=== PATIENT | female | born 1955 | race Two or more races ===

== ENCOUNTER 2018-01-29 19:02 | Emergency (ER) | payer OTHER ==
--- NOTE | 2018-01-29 21:09 | ED Physician Documentation ---
PD HPI LOWER EXT INJURY - Stated complaint Stated Complaint: LT LEG LAC - Chief complaint Chief Complaint: Laceration - History obtained from History obtained from: Patient - History of Present Illness PD HPI LOW EXT INJURY LOCATION: Left Type of injury: Blunt / blow (a wooden tamar struck her left leg, leading to laceration that does not want to stop bleeding, just oozing.) Improved by: Rest Worsened by: Moving, Palpating Associated symptoms: No: Weakness, Numbness Contributing factors: Anticoagulated. No: Prior ortho surgery Similar symptoms before: Has not had sx before Recently seen: Not recently seen Review of Systems Constitutional: denies: Fever, Chills Nose: denies: Rhinorrhea / runny nose, Congestion Cardiac: denies: Chest pain / pressure Respiratory: denies: Dyspnea GI: denies: Nausea, Vomiting, Diarrhea : denies: Dysuria, Frequency Neurologic: denies: Focal weakness, Numbness PD PAST MEDICAL HISTORY - Past Medical History Past Medical History: Yes Cardiovascular: Hypertension Neuro: TIA Endocrine/Autoimmune: Type 1 diabetes - Past Surgical History Past Surgical History: No - Present Medications Home Medications: Ambulatory Orders Medication Instructions Recorded Confirmed Aspirin/Dipyridamole [Aggrenox] 1 tab PO BID 01/29/18 01/29/18 Bupropion HCl [Bupropion Xl] 2 tab PO DAILY 01/29/18 01/29/18 Insulin Lispro [Humalog] 01/29/18 Losartan Potassium 1 tab PO DAILY 01/29/18 01/29/18 Pravastatin [Pravachol] 1 tab PO DAILY 01/29/18 01/29/18 - Allergies Allergies/Adverse Reactions: Allergies Allergy/AdvReac Type Severity Reaction Status Date / Time clindamycin Allergy Rash Verified 01/29/18 19:20 - Living Situation Living Arrangement: reports: At home - Social History Does the pt smoke?: No Smoking Status: Never smoker PD ED PE NORMAL - Vitals Vital signs reviewed: Yes - General General: Alert and oriented X 3, No acute distress, Well developed/nourished - Neck Neck: Supple, no meningeal sign, No adenopathy - Cardiac Cardiac: RRR, No murmur, No rub - Respiratory Respiratory: Clear bilaterally - Derm Derm: Normal color, Warm and dry - Extremities Extremities: Other (left lower leg anteriorly with laceration 2 cm to fatty tissue. No FB and no deep structures seen. ) Results - Vitals Vitals: Oxygen O2 Source Room air Procedures - Laceration (location) left lower leg Length in cm: 2 Wound type: Curved Neurovascular status: Sensory intact, Motor intact, Vascular intact Tendon involvement: No: Tendon Injury Anesthesia: Lidocaine 2% Skin layer closure: Nylon, Running, Size #-0 - enter number (4), Sutures - enter # Other: Patient tolerated well, No complications PD MEDICAL DECISION MAKING - Sepsis Event Vital Signs: Oxygen O2 Source Room air Departure - Departure Disposition: 01 Home, Self Care Clinical Impression: Laceration of left lower leg Qualifiers: Encounter type: initial encounter Qualified Code(s): S81.812A - Laceration without foreign body, left lower leg, initial encounter Condition: Stable Record reviewed to determine appropriate education?: Yes Instructions: ED Laceration All Comments: Tylenol or ibuprofen if needed for pains. It is okay to wash and shower. Clean off the wound twice a day with soap and water, or peroxide and water. Apply some antibiotic ointment to it to keep it moist. Also to watch for signs of infection such as purulence, redness or increasing pain. Return to your primary care or the ER at the specified time for suture removal. Suture removal in 12- 14 days. Discharge Date/Time: 01/29/18 22:19
[2018-01-29 22:19] VITALS: BP 132/73
== END 2018-01-29 22:19 | disposition home or self-care (01) ==
LOC: ED 19:02
DX: S81.812A Laceration without foreign body, left lower leg, initial encounter (principal); W22.8XXA Striking against or struck by other objects, initial encounter; I10 Essential (primary) hypertension; Z86.73 Personal history of transient ischemic attack (TIA), and cerebral infarction without residual deficits; Z79.82 Long term (current) use of aspirin; Z79.4 Long term (current) use of insulin
CPT/HCPCS: 12001; 99282; 99283

== ENCOUNTER 2018-02-11 09:19 | Emergency (ER) | payer OTHER ==
[2018-02-11 09:52] VITALS: BP 162/84
--- NOTE | 2018-02-11 10:04 | ED Physician Documentation ---
PD HPI WOUND RECHECK - Stated complaint Stated Complaint: SUTURE REMOVAL - Chief complaint Chief Complaint: Laceration - Histroy obtained from History obtained from: Patient - History of Present Illness Location: Left Lower Extremity Timing - onset: How many days ago (13) Associated symptoms: Redness Similar symptoms before: Diagnosis (laceration) Recently seen: Emergency Dept - Additional information Additional information: 62-year-old female had a left calf laceration and was seen in the emergency department here 13 days ago with sutures placed. She is in here now for suture removal. She has no specific complaints she has been keeping the wound closed. Review of Systems Constitutional: denies: Fever Respiratory: denies: Cough GI: denies: Vomiting : denies: Dysuria Skin: reports: Laceration (s). denies: Rash Musculoskeletal: denies: Neck pain, Back pain, Extremity pain Neurologic: denies: Generalized weakness, Focal weakness, Numbness PD PAST MEDICAL HISTORY - Past Medical History Cardiovascular: Hypertension Neuro: TIA Endocrine/Autoimmune: Type 1 diabetes - Past Surgical History Past Surgical History: No - Present Medications Home Medications: Ambulatory Orders Medication Instructions Recorded Confirmed Aspirin/Dipyridamole [Aggrenox] 1 tab PO BID 01/29/18 01/29/18 Bupropion HCl [Bupropion Xl] 2 tab PO DAILY 01/29/18 01/29/18 Insulin Lispro [Humalog] 01/29/18 Losartan Potassium 1 tab PO DAILY 01/29/18 01/29/18 Pravastatin [Pravachol] 1 tab PO DAILY 01/29/18 01/29/18 - Allergies Allergies/Adverse Reactions: Allergies Allergy/AdvReac Type Severity Reaction Status Date / Time clindamycin Allergy Rash Verified 01/29/18 19:20 - Social History Does the pt smoke?: No Smoking Status: Never smoker PD ED PE NORMAL - Vitals Vital signs reviewed: Yes (hypertensive) - General General: Alert and oriented X 3, No acute distress, Well developed/nourished - HEENT HEENT: Atraumatic, PERRL - Respiratory Respiratory: No respiratory distress - Derm Derm: Normal color, Warm and dry, No rash - Extremities Extremities: No deformity, No edema, Other (There is a 5cm laceration to the left anterior calf that appears to be healing well without drainage or sweling. ) - Neuro Neuro: Alert and oriented X 3, No motor deficit, No sensory deficit, Normal speech Eye Opening: Spontaneous Motor: Obeys Commands Verbal: Oriented GCS Score: 15 - Psych Psych: Normal mood, Normal affect Results - Vitals Vitals: Vital Signs - 24 hr 02/11/18 09:50 Temperature 36.7 C Heart Rate 72 Respiratory 16 Rate Blood Pressure 162/84 H O2 Saturation 99 Oxygen O2 Source Room air PD MEDICAL DECISION MAKING - ED course Complexity details: considered differential, d/w patient ED course: 62-year-old female with sutures placed on her calf for 13 days has the sutures removed by the RN and Steri-Strips placed. - Sepsis Event Vital Signs: Vital Signs - 24 hr 02/11/18 09:50 Temperature 36.7 C Heart Rate 72 Respiratory 16 Rate Blood Pressure 162/84 H O2 Saturation 99 Oxygen O2 Source Room air Departure - Departure Disposition: 01 Home, Self Care Clinical Impression: Laceration of left lower leg Qualifiers: Encounter type: subsequent encounter Qualified Code(s): S81.812D - Laceration without foreign body, left lower leg, subsequent encounter Instructions: ED Wound Check Sutr Remove No Infec Follow-Up: Lashanda Joyce MD [Primary Care Provider] -
== END 2018-02-11 10:28 | disposition home or self-care (01) ==
LOC: ED 09:19
DX: S81.812D Laceration without foreign body, left lower leg, subsequent encounter (principal); X58.XXXD Exposure to other specified factors, subsequent encounter; I10 Essential (primary) hypertension; E10.9 Type 1 diabetes mellitus without complications; Z86.73 Personal history of transient ischemic attack (TIA), and cerebral infarction without residual deficits
CPT/HCPCS: 99282

== ENCOUNTER 2019-05-27 07:25 | Outpatient (CLI) | payer OTHER ==
[2019-05-27 11:57] LABS: ALBUMIN 4.2 g/dL (3.2-5.5); ALBUMIN/GLOBULIN RATIO 1.4 (1.0-2.2); BILIRUBIN,TOTAL 0.6 mg/dL (0.2-1.0); CALCIUM 9.9 mg/dL (8.5-10.3); CREATININE 0.8 mg/dL (0.4-1.0); TOTAL PROTEIN 7.3 g/dL (6.7-8.2)
[2019-05-27 12:54] LABS: HB2 TOTAL 13.5 g/dL; HEMOGLOBIN A1C 0.72 g/dL
== END 2019-05-27 07:26 | disposition home or self-care (01) ==
LOC: LAB.S 07:25
PROVIDERS: ATTEND Specialist
DX: E10.69 Type 1 diabetes mellitus with other specified complication (principal); E78.00 Pure hypercholesterolemia, unspecified
CPT/HCPCS: 36415; 80053; 83036

== ENCOUNTER 2020-12-15 | Outpatient (CLI) | payer MEDICARE, BC | END 2020-12-15 14:10 | disposition critical access hospital (66) | CPT/HCPCS: A0425; A0427 ==

== ENCOUNTER 2020-12-15 14:47 | Emergency (ER) | payer MEDICARE, BC ==
[2020-12-15] MEDS ORDERED: metroNIDAZOLE 500 MG/100 ML 500 MG/100 ML BAG IV STA (14:58)
[2020-12-15] MEDS ORDERED: CEFEPIME 2 GM in SODIUM CHLORIDE 0.9% MINIBAG 100 ML IV STA (14:58)
[2020-12-15] MEDS ORDERED: SODIUM CHLORIDE 0.9% 1,000 ML IV STA ×2 (14:59→21:49)
--- NOTE | 2020-12-15 15:01 | ED Physician Documentation ---
PD HPI NVD - Stated complaint Stated Complaint: N/V - History obtained from History obtained from: Patient - Additonal information Additional information: 65-year-old woman with longstanding type 1 diabetes (diagnosed at age 8) and recent diagnosis of cholangiocarcinoma about 2 weeks ago with ERCP and stent placement presents with 24 hours of nausea and vomiting and fever noted by paramedics. She denies abdominal pain. Does have a slight worsening of chronic sciatica. Denies urinary complaints, cough, shortness of breath, or other respiratory complaints. Review of Systems Ten Systems: 10 systems reviewed and negative Constitutional: reports: Fever, Chills Nose: reports: Reviewed and negative Throat: reports: Reviewed and negative Cardiac: reports: Reviewed and negative Respiratory: reports: Reviewed and negative PD PAST MEDICAL HISTORY - Past Medical History Cardiovascular: Hypertension Neuro: TIA Endocrine/Autoimmune: Type 1 diabetes - Past Surgical History Past Surgical History: No - Present Medications Home Medications: Ambulatory Orders Medication Instructions Recorded Confirmed Aspirin/Dipyridamole [Aggrenox] 1 tab PO BID 01/29/18 01/29/18 Insulin Lispro [Humalog] 01/29/18 Losartan Potassium 1 tab PO DAILY 01/29/18 01/29/18 Pravastatin [Pravachol] 1 tab PO DAILY 01/29/18 01/29/18 buPROPion HCL [Bupropion Xl] 2 tab PO DAILY 01/29/18 01/29/18 - Allergies Allergies/Adverse Reactions: Allergies Allergy/AdvReac Type Severity Reaction Status Date / Time clindamycin Allergy Rash Verified 12/15/20 15:00 - Social History Does the pt smoke?: No Smoking Status: Never smoker Does the pt drink ETOH?: No Does the pt have substance abuse?: No - Immunizations Immunizations are current?: Yes - POLST Patient has POLST: No PD ED PE NORMAL - Vitals Vital signs reviewed: Yes (Febrile and tachycardic) - General General: Alert and oriented X 3, Other (Technically alert and oriented x3 but slightly slow to answer questions) - HEENT HEENT: PERRL, EOMI - Neck Neck: Supple, no meningeal sign, No bony TTP - Cardiac Cardiac: Other (Tachycardic but regular without murmur) - Respiratory Respiratory: No respiratory distress, Clear bilaterally - Abdomen Abdomen: Normal bowel sounds, Soft, Non tender, Other (Insulin pump in place) - Back Back: No CVA TTP, No spinal TTP - Derm Derm: Normal color, Warm and dry - Extremities Extremities: No edema, No calf tenderness / cord - Neuro Neuro: Alert and oriented X 3, Normal speech Results - Vitals Vitals: Vital Signs - 24 hr 12/15/20 12/15/20 12/15/20 14:50 15:35 16:05 Temperature 39.4 C H 38.3 C H Heart Rate 114 H 109 H 110 H Respiratory 21 25 H 26 H Rate Blood Pressure 144/58 H 146/52 H 138/76 H O2 Saturation 97 97 96 Oxygen O2 Source Room air - Labs Labs: Laboratory Tests 12/15/20 12/15/20 12/15/20 15:02 15:20 15:20 WBC 8.4 RBC 3.55 L Hgb 10.9 L Hct 31.7 L MCV 89.3 MCH 30.7 MCHC 34.4 RDW 12.0 Plt Count 201 MPV 12.6 H Neut # (Auto) 7.8 H Lymph # (Auto) 0.1 L Gonzales # (Auto) 0.4 Eos # (Auto) 0.1 Baso # (Auto) 0.0 Absolute Nucleated RBC 0.00 Nucleated RBC % 0.0 Sodium 128 L Potassium 3.7 Chloride 98 L Carbon Dioxide 19 L Anion Gap 11.0 BUN 14 Creatinine 0.6 Estimated GFR (MDRD) 100 Glucose 282 H Lactic Acid Calcium 8.0 L Total Bilirubin 2.8 H AST 275 H ALT 284 H Alkaline Phosphatase 505 H Total Protein 6.1 L Albumin 3.1 L Globulin 3.0 Albumin/Globulin Ratio 1.0 Urine Color Urine Clarity Urine pH Ur Specific Collbran Urine Protein Urine Glucose (UA) Urine Ketones Urine Occult Blood Urine Nitrite Urine Bilirubin Urine Urobilinogen Ur Leukocyte Esterase Urine RBC Urine WBC Ur Squamous Epith Cells Urine Bacteria Urine Mucus Urine Culture Comments Nasal Adenovirus (PCR) NOT DETECTED Nasal B. parapertussis DNA (PCR) NOT DETECTED Nasal Coronavir 229E PCR NOT DETECTED Nasal Coronavir HKU1 PCR NOT DETECTED Nasal Coronavir NL63 PCR NOT DETECTED Nasal Coronavir OC43 PCR NOT DETECTED Nasal Enterovir/Rhinovir PCR NOT DETECTED Nasal Influenza B PCR NOT DETECTED Nasal Influenza A PCR NOT DETECTED Nasal Parainfluen 1 PCR NOT DETECTED Nasal Parainfluen 2 PCR NOT DETECTED Nasal Parainfluen 3 PCR NOT DETECTED Nasal Parainfluen 4 PCR NOT DETECTED Nasal RSV (PCR) NOT DETECTED Nasal B.pertussis DNA PCR NOT DETECTED Nasal C.pneumoniae (PCR) NOT DETECTED Madhav Human Metapneumo PCR NOT DETECTED Nasal M.pneumoniae (PCR) NOT DETECTED Nasal SARS-CoV-2 (PCR) NOT DETECTED 12/15/20 12/15/20 15:20 15:29 WBC RBC Hgb Hct MCV MCH MCHC RDW Plt Count MPV Neut # (Auto) Lymph # (Auto) Gonzales # (Auto) Eos # (Auto) Baso # (Auto) Absolute Nucleated RBC Nucleated RBC % Sodium Potassium Chloride Carbon Dioxide Anion Gap BUN Creatinine Estimated GFR (MDRD) Glucose Lactic Acid 1.5 Calcium Total Bilirubin AST ALT Alkaline Phosphatase Total Protein Albumin Globulin Albumin/Globulin Ratio Urine Color DARK YELLOW Urine Clarity HAZY Urine pH 6.5 Ur Specific Collbran 1.020 Urine Protein 30 H Urine Glucose (UA) 500 H Urine Ketones 15 H Urine Occult Blood TRACE-INTA Urine Nitrite NEGATIVE Urine Bilirubin SMALL H Urine Urobilinogen 1 (NORMAL) Ur Leukocyte Esterase NEGATIVE Urine RBC 6-10 H Urine WBC 0-3 Ur Squamous Epith Cells RARE Squamous Urine Bacteria Rare Urine Mucus Few Strands Urine Culture Comments NOT INDICATED Nasal Adenovirus (PCR) Nasal B. parapertussis DNA (PCR) Nasal Coronavir 229E PCR Nasal Coronavir HKU1 PCR Nasal Coronavir NL63 PCR Nasal Coronavir OC43 PCR Nasal Enterovir/Rhinovir PCR Nasal Influenza B PCR Nasal Influenza A PCR Nasal Parainfluen 1 PCR Nasal Parainfluen 2 PCR Nasal Parainfluen 3 PCR Nasal Parainfluen 4 PCR Nasal RSV (PCR) Nasal B.pertussis DNA PCR Nasal C.pneumoniae (PCR) Madhav Human Metapneumo PCR Nasal M.pneumoniae (PCR) Nasal SARS-CoV-2 (PCR) - Rads (name of study) CT A/P Radiology: EMP read contemporaneously cxr Radiology: EMP read contemporaneously (NAD) PD MEDICAL DECISION MAKING - ED course ED course: IMPRESSION: 1. Migration of the common bile duct stent into the duodenum. The common bile duct stent does not traverse the Kl[place] tumor, and there is moderate consequent intrahepatic biliary ductal dilatation. Gastroenterology consultation is recommended. 2. Pericholecystic fluid versus gallbladder wall thickening. Initial further assessment with ultrasound is recommended. 65-year-old woman with known cholangiocarcinoma presents with fever vomiting and back pain. Work-up here demonstrates migration of the stent making it nonfunctional with elevated liver enzymes and this suggests that her Source of sepsis is ascending cholangitis. She was administered cefepime and Flagyl here. Blood cultures have been obtained. She had the stent placed to the [place] by Dr. Howell but she is also seeing a surgical oncologist at [facility] but the name of Dr. Soliz. - Sepsis Event Sepsis Onset Date: 12/15/20 Sepsis Onset Time: 16:00 Current Stage of Sepsis: Sepsis Initial Hypotension: Not hypotensive Possible source of Sepsis: GI tract/intra-abdominal Mental/Cognitive Status: Alert/Oriented X3, Normal for patient Reason for not giving 30ml/kg crystalloid fluids: Not in septic shock Capillary refill: Less than 2 seconds Peripheral Pulse Strength: 3+ Normal Peripheral Pulse Location: Radial Departure - Departure Disposition: 02 Transfer Acute Care Hosp Clinical Impression: Ascending cholangitis, Cholangiocarcinoma, Sepsis Condition: Serious
[2020-12-15] MEDS ORDERED: IOVERSOL 320 100 ML VIAL IVP ONE ×2 (15:16→16:53)
--- NOTE | 2020-12-15 15:25 | XRAY Report ---
PROCEDURE: Chest 1 View X-Ray INDICATIONS: fever TECHNIQUE: One view of the chest was acquired. COMPARISON: None FINDINGS: Surgical changes and devices: None. Lungs and pleura: No pleural effusions or pneumothorax. Lungs are clear. Mediastinum: Mediastinal contours appear normal. Heart size is normal. Bones and chest wall: No suspicious bony lesions. Overlying soft tissues appear unremarkable. IMPRESSION: No acute process. Reviewed by: Jasmeet Mcclellan MD on 12/15/2020 3:24 PM PDT Approved by: Jasmeet Mcclellan MD on 12/15/2020 3:24 PM PDT Station ID: [id number]
[2020-12-15 15:31] LABS: BASOPHILS % (AUTO) 0.4 %; EOSINOPHILS # (AUTO) 0.1 10^3/uL (0.0-0.7); EOSINOPHILS % (AUTO) 0.7 %; HCT - HEMATOCRIT 31.7 % (37.0-47.0); HGB - HEMOGLOBIN 10.9 g/dL (12.0-16.0); LYMPHOCYTES # (AUTO) 0.1 10^3/uL (1.5-3.5); LYMPHOCYTES % (AUTO) 1.1 %; MEAN CORPUSCULAR HEMOGLOBIN 30.7 pg (27.0-31.0); MEAN CORPUSCULAR HGB CONC 34.4 g/dL (32.0-36.0); MEAN CORPUSCULAR VOLUME 89.3 fL (81.0-99.0); MEAN PLATELET VOLUME 12.6 fL (7.9-10.8); MONOCYTES # (AUTO) 0.4 10^3/uL (0.0-1.0); MONOCYTES % (AUTO) 4.6 %; NEUTROPHILS # (AUTO) 7.8 10^3/uL (1.5-6.6); NEUTROPHILS % (AUTO) 92.4 %; PLT - PLATELET COUNT 201 10^3/uL (130-450); RED BLOOD COUNT 3.55 10^6/uL (4.20-5.40); WHITE BLOOD COUNT 8.4 x10^3/uL (4.8-10.8)
[2020-12-15] MEDS ORDERED: ACETAMINOPHEN 325 MG TABLET PO STA (15:32)
[2020-12-15 15:43] LABS: GLUCOSE, URINE (UA) 500 mg/dL (NEGATIVE); KETONES,URINE (UA) 15 mg/dL (NEGATIVE); LEUKOCYTE ESTERASE, URINE NEGATIVE (NEGATIVE); NITRITE,URINE NEGATIVE (NEGATIVE); OCCULT BLOOD,URINE TRACE-INTA (NEGATIVE); PH,URINE 6.5 PH (5.0-7.5); PROTEIN,URINE 30 mg/dL (NEGATIVE); UROBILINOGEN,URINE 1 (NORMAL) E.U./dL (NORMAL)
[2020-12-15 15:48] LABS: BILIRUBIN,URINE SMALL (NEGATIVE); CLARITY,URINE HAZY (CLEAR); ICTOTEST,URINE POSITIVE
[2020-12-15 15:55] LABS: BACTERIA,URINE Rare /HPF (None Seen); MUCUS,URINE Few Strands; SQUAMOUS EPITHELIAL CELL,UR RARE Squamous (<= Few); WBC,URINE 0-3 /HPF (0-5)
[2020-12-15 16:07] LABS: ALBUMIN 3.1 g/dL (3.2-5.5); BILIRUBIN,TOTAL 2.8 mg/dL (0.2-1.0); CREATININE 0.6 mg/dL (0.4-1.0); POTASSIUM 3.7 mmol/L (3.5-5.0); TOTAL PROTEIN 6.1 g/dL (6.7-8.2)
[2020-12-15 16:07] LABS: B. PARAPERTUSSIS- RESP PCR PAN NOT DETECTED; B. PERTUSSIS- RESP PCR PANEL NOT DETECTED; C. PNEUMONIAE- RESP PCR PANEL NOT DETECTED; CORONAVIRUS 229E-RESP PCR NOT DETECTED; CORONAVIRUS HKU1-RESP PCR NOT DETECTED; CORONAVIRUS NL63-RESP PCR NOT DETECTED; CORONAVIRUS OC43-RESP PCR NOT DETECTED; HUMAN METAPNEUMOVIRUS NOT DETECTED; INFLUENZA A- RESP PCR PANEL NOT DETECTED; INFLUENZA B - RESP PCR PANEL NOT DETECTED; M. PNEUMONIAE- RESP PCR PANEL NOT DETECTED; PARAINFLUENZA VIRUS 1 NOT DETECTED; PARAINFLUENZA VIRUS 2 NOT DETECTED; PARAINFLUENZA VIRUS 3 NOT DETECTED; PARAINFLUENZA VIRUS 4 NOT DETECTED; RHINOVIRUS/ENTEROVIRUS NOT DETECTED; RSV- RESP PCR PANEL NOT DETECTED; SARS-CoV-2 -RESP PCR PANEL NOT DETECTED
--- NOTE | 2020-12-15 16:49 | CT Report ---
PROCEDURE: Abdomen/Pelvis W INDICATIONS: IV only, fever, recent dx cholangiocarcinoma CONTRAST: IV CONTRAST: Optiray 320 ml: 100 PO CONTRAST: *NO PO CONTRAST TECHNIQUE: After the administration of IV contrast, 5 mm thick sections acquired from the diaphragms to the symp hysis. 5 mm thick coronal and sagittal reformats were acquired. For radiation dose reduction, the f ollowing was used: automated exposure control, adjustment of mA and/or kV according to patient size. COMPARISON: None. FINDINGS: Image quality: Excellent. ABDOMEN: Lung bases: Lung bases are clear. Heart size is normal. Solid organs: Liver and spleen are normal in size. There is an ill-defined hypodense avidly enhancin g mass at the hepatic hilum, measuring roughly 25 mm diameter, at the confluence of the intrahepatic bile ducts. Gallbladder demonstrates wall thickening versus fluid adjacent to the fundus. There is mo derate intrahepatic biliary ductal dilatation. A common bile duct stent is present, tip of which appe ars to be in the common hepatic duct, and has migrated into the third portion of the duodenum. Pancre as enhances normally. No adrenal nodules. Kidneys demonstrate normal size and enhancement, without hydronephrosis. Peritoneum and bowel: Bowel loops demonstrate normal wall thickness and caliber. No free fluid or a ir. Nodes and vessels: No retroperitoneal or mesenteric adenopathy by size criteria. Aorta and inferior vena cava are normal in size. Miscellaneous: No ventral hernias. PELVIS: Genitourinary: Bladder wall thickness is normal. Miscellaneous: No inguinal hernias or adenopathy. Bones: No suspicious bony lesions. No vertebral body compression fractures. IMPRESSION: 1. Migration of the common bile duct stent into the duodenum. The common bile duct stent does not tra verse the Kl[place]kin tumor, and there is moderate consequent intrahepatic biliary ductal dilatation. Ga stroenterology consultation is recommended. 2. Pericholecystic fluid versus gallbladder wall thickening. Initial further assessment with ultrasou nd is recommended. Reviewed by: Jasmeet Mcclellan MD on 12/15/2020 4:48 PM PDT Approved by: Jasmeet Mcclellan MD on 12/15/2020 4:48 PM PDT Station ID: [id number]
--- NOTE | 2020-12-15 22:54 | ED Physician Documentation ---
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 Dr. Jere Padilla oncologist is the accepting physician and I have also spoke to Dr. Mane Sen the GI intelligence consultant from [facility] who advises transfer.
[2020-12-16 00:07] VITALS: BP 98/56
== END 2020-12-16 00:22 | disposition short-term general hospital (02) ==
LOC: EDUNIT# → ED 14:47
DX: A41.9 Sepsis, unspecified organism (principal); R65.20 Severe sepsis without septic shock; K83.09 Other cholangitis; C22.1 Intrahepatic bile duct carcinoma; T85.520A Displacement of bile duct prosthesis, initial encounter; Y83.8 Other surgical procedures as the cause of abnormal reaction of the patient, or of later complication, without mention of misadventure at the time of the procedure; Z20.822 Contact with and (suspected) exposure to COVID-19; I10 Essential (primary) hypertension; E10.9 Type 1 diabetes mellitus without complications; Z79.82 Long term (current) use of aspirin
CPT/HCPCS: 36415; 71045; 74177; 80053; 81001; 83605; 85025; 87040; 87150; 87631; 96365; 96368; 99285; A9270; Q9967; 0202U; 87086

== ENCOUNTER 2021-01-08 15:35 | Emergency (ER) | payer MEDICARE, OTHER ==
--- OUTSIDE RECORDS SUMMARY | 2021-01-08 15:38 | EXTERNAL MEDICAL SUMMARY RPT | Continuity of Care Document ---
:1955 Demographics Phone Unavailable Preferred Language Unknown Marital Status Unknown Pentec[employer]al Affiliation Unknown Race Unknown Ethnic Group Unknown Author Organization [place] Address [address] [place] [address] Phone Allergies Encounters Medications Problems date description facility [id number] cholangiocarcinoma, n/v, fever, ERCP 2x [facility] wks ago, [facility], ETA 0130 [phone] Other cholangitis [facility] [id number] Obstruction of bile duct [facility] [id number] Nausea [facility] [id number] Malignant (primary) neoplasm, [facility] unspecified [id number] Displacement of bile duct prosthesis, [facility] initial encounter [id number] Ascending cholangitis s/p Stent [facility] Migration Results
--- OUTSIDE RECORDS SUMMARY | 2021-01-08 15:51 | EXTERNAL MEDICAL SUMMARY RPT | Continuity of Care Document ---
:1955 Demographics Phone Unavailable Preferred Language Unknown Marital Status Unknown [employer] Affiliation Unknown Race Unknown Ethnic Group Unknown Author Organization [facility] Address [address] [place] [address] Phone Allergies Encounters Medications Problems date description facility [id number] cholangiocarcinoma, n/v, fever, ERCP 2x [facility] wks ago, given abx @[facility] ER, ETA 0130 [phone] Other cholangitis [facility] [id number] Obstruction of bile duct [facility] [id number] Nausea [facility] [id number] Malignant (primary) neoplasm, [facility] unspecified [id number] Displacement of bile duct prosthesis, [facility] initial encounter [id number] Ascending cholangitis s/p Stent [facility] Migration Results
[2021-01-08 16:09] LABS: HCT - HEMATOCRIT 27.8 % (37.0-47.0); HGB - HEMOGLOBIN 9.4 g/dL (12.0-16.0); LYMPHOCYTES % (AUTO) 2.6 %; MEAN CORPUSCULAR HGB CONC 33.8 g/dL (32.0-36.0); MEAN CORPUSCULAR VOLUME 85.8 fL (81.0-99.0); MEAN PLATELET VOLUME 10.3 fL (7.9-10.8); MONOCYTES % (AUTO) 4.1 %; NEUTROPHILS % (AUTO) 92.5 %; PLT - PLATELET COUNT 353 10^3/uL (130-450); RED BLOOD COUNT 3.24 10^6/uL (4.20-5.40); WHITE BLOOD COUNT 30.6 x10^3/uL (4.8-10.8)
[2021-01-08 16:10] LABS: BILIRUBIN,URINE NEGATIVE (NEGATIVE); GLUCOSE, URINE (UA) NEGATIVE (NEGATIVE); KETONES,URINE (UA) NEGATIVE (NEGATIVE); LEUKOCYTE ESTERASE, URINE NEGATIVE (NEGATIVE); NITRITE,URINE NEGATIVE (NEGATIVE); OCCULT BLOOD,URINE NEGATIVE (NEGATIVE); PH,URINE 7.5 PH (5.0-7.5); PROTEIN,URINE 30 mg/dL (NEGATIVE); UROBILINOGEN,URINE 0.2 (NORMAL) E.U./dL (NORMAL)
[2021-01-08 16:11] LABS: CLARITY,URINE CLEAR (CLEAR)
[2021-01-08 16:15] LABS: ABNORMAL LYMPHS % (MANUAL) 0 %
[2021-01-08 16:16] LABS: BACTERIA,URINE Rare /HPF (None Seen); MUCUS,URINE Few Strands; RBC,URINE 0-5 /HPF (0-5); SQUAMOUS EPITHELIAL CELL,UR RARE Squamous (<= Few); WBC,URINE 0-3 /HPF (0-5)
[2021-01-08 16:25] LABS: ALBUMIN 3.1 g/dL (3.2-5.5); ALBUMIN/GLOBULIN RATIO 0.7 (1.0-2.2); BILIRUBIN,TOTAL 1.2 mg/dL (0.2-1.0); CREATININE 0.8 mg/dL (0.4-1.0); TOTAL PROTEIN 7.4 g/dL (6.7-8.2)
[2021-01-08 16:33] LABS: BAND NEUTROPHILS % (MANUAL) 15 %; LYMPHOCYTES # (MANUAL) 1.2 10^3/uL (1.5-3.5); LYMPHOCYTES % (MANUAL) 4 %; MONOCYTES # (MANUAL) 1.8 10^3/uL (0.0-1.0); NEUTROPHILS # (MANUAL) 27.5 10^3/uL (1.5-6.6); PLATELET ESTIMATE, MANUAL NORMAL (130-450,000) (NORMAL); PLATELET MORPHOLOGY NORMAL APPEARANCE (NORMAL); RBC MORPHOLOGY (MULTIPLE) NORMAL APPEARANCE (NORMAL); WBC MORPHOLOGY (MULTIPLE) NORMAL APPEARANCE (NORMAL)
[2021-01-08 16:34] LABS: DIFFERENTIAL COMMENT MANUAL DIFFERENTIAL
--- NOTE | 2021-01-08 16:35 | XRAY Report ---
PROCEDURE: Chest 1 View X-Ray INDICATIONS: chest pain TECHNIQUE: One view of the chest was acquired. COMPARISON: Chest plain film and abdomen pelvis CT, 12/15/2020 FINDINGS: Surgical changes and devices: Since the prior examination, a right-sided chest port has been placed, with the tip seen overlying the inferior aspect of the superior vena cava, near the cavoatrial juncti on. There is an upper abdominal stent also seen. Lungs and pleura: On the semiupright images, no large pneumothorax or large pleural effusions can be seen. No focal infiltrates are seen. Low lung volumes can be seen, causing a crowded appearance to the lung markings. Mediastinum: Mediastinal contours appear normal. Heart size is normal. Bones and chest wall: No suspicious bony lesions. Age-appropriate degenerative changes are seen. O verlying soft tissues appear unremarkable. IMPRESSION: Postoperative change with the right-sided chest port and an upper abdominal stent. Low lung volumes, without an acute abnormality seen. Reviewed by: Shukri Heath MD on 01/08/2021 3:34 PM KARUNA Approved by: Shukri Heath MD on 01/08/2021 3:34 PM KARUNA Station ID: [id number]
[2021-01-08] MEDS ORDERED: CEFEPIME 1 GM in SODIUM CHLORIDE 0.9% MINIBAG 100 ML IV STA (17:03)
[2021-01-08] MEDS ORDERED: SODIUM CHLORIDE 0.9% 1,000 ML IV STA (17:03)
--- NOTE | 2021-01-08 17:29 | ED Physician Documentation ---
PD HPI FEVER - Stated complaint Stated Complaint: FEVER - Chief complaint Chief Complaint: Fever - History obtained from History obtained from: Patient, Family - History of Present Illness Timing - onset: Today Timing duration: Hours Timing details: Gradual onset, Still present Associated symptoms: Chills, Sweats, Abdominal pain Contributing factors: Immunocompromised Similar symptoms before: Has not had sx before Recently seen: Other - Additional information Additional information: 65-year-old female with a history of cholangiocarcinoma who has [address] has had her first dose of chemotherapy 5 days ago and today she has developed a fever. She does indicate that she was constipated and she took some medication for constipation and had diarrhea which was excessive and now has resolved. The patient has some pain to the left side of her abdomen which she feels is a referred pain. This is not changed over the past week. She has not had vomiting she has not had difficulty with breathing denies any urinary symptoms and denies any skin changes. Review of Systems Constitutional: reports: Fever, Chills, Myalgias Eyes: denies: Decreased vision Ears: denies: Ear pain Nose: denies: Rhinorrhea / runny nose, Congestion Throat: denies: Sore throat Cardiac: denies: Chest pain / pressure, Palpitations Respiratory: denies: Dyspnea GI: reports: Abdominal Pain, Constipation (resolved), Diarrhea (resolved). denies: Nausea, Vomiting : denies: Dysuria, Frequency Skin: denies: Rash Musculoskeletal: denies: Neck pain, Back pain, Extremity pain, Joint pain Neurologic: denies: Generalized weakness, Focal weakness PD PAST MEDICAL HISTORY - Past Medical History Cardiovascular: Hypertension Neuro: TIA Endocrine/Autoimmune: Type 1 diabetes GI: Other (cholangiocarcinoma ) - Past Surgical History Past Surgical History: No - Present Medications Home Medications: Ambulatory Orders Medication Instructions Recorded Confirmed Aspirin/Dipyridamole [Aggrenox] 1 tab PO BID 01/29/18 12/15/20 Insulin Lispro [Humalog] 01/29/18 Losartan Potassium 1 tab PO DAILY 01/29/18 12/15/20 Pravastatin [Pravachol] 1 tab PO DAILY 01/29/18 12/15/20 buPROPion HCL [Bupropion Xl] 2 tab PO DAILY 01/29/18 12/15/20 - Allergies Allergies/Adverse Reactions: Allergies Allergy/AdvReac Type Severity Reaction Status Date / Time clindamycin Allergy Rash Verified 01/08/21 15:51 - Social History Does the pt smoke?: No Smoking Status: Never smoker Does the pt drink ETOH?: No Does the pt have substance abuse?: No - Immunizations Immunizations are current?: Yes - POLST Patient has POLST: No PD ED PE NORMAL - Vitals Vital signs reviewed: Yes - HEENT HEENT: Atraumatic, PERRL, EOMI - Neck Neck: Supple, no meningeal sign, No bony TTP - Cardiac Cardiac: RRR, No murmur - Respiratory Respiratory: No respiratory distress, Clear bilaterally - Abdomen Abdomen: Normal bowel sounds, Soft, Non tender, Non distended, No organomegaly - Back Back: No CVA TTP, No spinal TTP - Derm Derm: Normal color, Warm and dry, No rash - Extremities Extremities: No deformity, No edema - Neuro Neuro: Alert and oriented X 3, burlap man 2-12 intact, No motor deficit, No sensory deficit, Normal speech Eye Opening: Spontaneous Motor: Obeys Commands Verbal: Oriented GCS Score: 15 - Psych Psych: Normal mood, Normal affect Results - Vitals Vitals: Vital Signs - 24 hr 01/08/21 01/08/21 15:44 17:51 Temperature 38.6 C H Heart Rate 110 H 85 Respiratory 20 18 Rate Blood Pressure 163/61 H 174/67 H O2 Saturation 97 98 Oxygen O2 Source Room air - Labs Labs: Laboratory Tests 01/08/21 01/08/21 01/08/21 15:59 16:03 16:03 WBC 30.6 H RBC 3.24 L Hgb 9.4 L Hct 27.8 L MCV 85.8 MCH 29.0 MCHC 33.8 RDW 12.0 Plt Count 353 MPV 10.3 Neut # (Auto) Not Reportable Lymph # (Auto) Not Reportable [place] # (Auto) Not Reportable Eos # (Auto) Not Reportable Baso # (Auto) Not Reportable Absolute Nucleated RBC Not Reportable Total Counted 100 Band Neuts % (Manual) 15 H Abnorm Lymph % (Manual) 0 Nucleated RBC % Not Reportable Neutrophils # (Manual) 27.5 H Lymphocytes # (Manual) 1.2 L Monocytes # (Manual) 1.8 H Eosinophils # (Manual) 0.0 Basophils # (Manual) 0.0 Differential Comment MANUAL DIFFERENTIAL WBC Morphology NORMAL APPEARANCE Platelet Estimate NORMAL (130-450,000) Platelet Morphology NORMAL APPEARANCE RBC Morph Micro Appear NORMAL APPEARANCE Sodium 129 L Potassium 4.0 Chloride 90 L Carbon Dioxide 26 Anion Gap 13.0 BUN 15 Creatinine 0.8 Estimated GFR (MDRD) 72 L Glucose 134 H Lactic Acid Calcium 9.0 Total Bilirubin 1.2 H AST 141 H ALT 162 H Alkaline Phosphatase 474 H Total Protein 7.4 Albumin 3.1 L Globulin 4.3 H Albumin/Globulin Ratio 0.7 L Lipase 19 L Urine Color YELLOW Urine Clarity CLEAR Urine pH 7.5 Ur Specific [place] 1.010 Urine Protein 30 H Urine Glucose (UA) NEGATIVE Urine Ketones NEGATIVE Urine Occult Blood NEGATIVE Urine Nitrite NEGATIVE Urine Bilirubin NEGATIVE Urine Urobilinogen 0.2 (NORMAL) Ur Leukocyte Esterase NEGATIVE Urine RBC 0-5 Urine WBC 0-3 Ur Squamous Epith Cells RARE Squamous Urine Bacteria Rare Urine Mucus Few Strands Ur Microscopic Review INDICATED Urine Culture Comments NOT INDICATED 01/08/21 16:03 WBC RBC Hgb Hct MCV MCH MCHC RDW Plt Count MPV Neut # (Auto) Lymph # (Auto) [place] # (Auto) Eos # (Auto) Baso # (Auto) Absolute Nucleated RBC Total Counted Band Neuts % (Manual) Abnorm Lymph % (Manual) Nucleated RBC % Neutrophils # (Manual) Lymphocytes # (Manual) Monocytes # (Manual) Eosinophils # (Manual) Basophils # (Manual) Differential Comment WBC Morphology Platelet Estimate Platelet Morphology RBC Morph Micro Appear Sodium Potassium Chloride Carbon Dioxide Anion Gap BUN Creatinine Estimated GFR (MDRD) Glucose Lactic Acid 1.5 Calcium Total Bilirubin AST ALT Alkaline Phosphatase Total Protein Albumin Globulin Albumin/Globulin Ratio Lipase Urine Color Urine Clarity Urine pH Ur Specific [place] Urine Protein Urine Glucose (UA) Urine Ketones Urine Occult Blood Urine Nitrite Urine Bilirubin Urine Urobilinogen Ur Leukocyte Esterase Urine RBC Urine WBC Ur Squamous Epith Cells Urine Bacteria Urine Mucus Ur Microscopic Review Urine Culture Comments - Rads (name of study) chest Radiology: Prelim report reviewed (Impression: Postoperative changes with the right-sided chest port and an upper abdominal stent. Low lung volumes, without acute abnormality seen.), EMP read indepedently, See rad report PD MEDICAL DECISION MAKING - ED course Complexity details: reviewed old records, reviewed results, re-evaluated patient, considered differential, d/w patient, d/w family ED course: 65-year-old female with history of cholangiocarcinoma has developed a fever 5 days after receiving her first dose of chemotherapy. She is not neutropenic. In fact she has a markedly elevated white blood cell count with a marked left shift. She arrived to the emergency department with a body temperature of 38.6 C. She had a heart rate of 110. She has been administered intravenous cefepime and saline and we have now added Flagyl to her regimen. When she arrived the thought was that she may have some issue with her stent or ascending cholangitis and thus these antibiotics were selected. There is no evidence of infection in the urine or chest. I spoke with the care team at [facility] and spoke to Vandana Royal. She recommended we admit the patient here for antibiotic treatment and right upper quadrant ultrasound. I spoken to Dr. Damian who will admit the patient here and follow-up on her ultrasound. Departure - Departure Disposition: ED Place in Observation Clinical Impression: Fever Qualifiers: Fever type: unspecified Qualified Code(s): R50.9 - Fever, unspecified Sepsis Qualifiers: Sepsis type: sepsis due to unspecified organism Sepsis acute organ dysfunction status: without acute organ dysfunction Qualified Code(s): A41.9 - Sepsis, unspecified organism Condition: Stable
[2021-01-08] MEDS ORDERED: metroNIDAZOLE 500 MG/100 ML 500 MG/100 ML BAG IV ONE (17:46)
[2021-01-08] MEDS ORDERED: ACETAMINOPHEN 325 MG TABLET PO STA (17:57)
[2021-01-08] MEDS ORDERED: ONDANSETRON 4 MG/2 ML VIAL IVP STA (17:57)
--- NOTE | 2021-01-08 19:36 | Ultrasound Report ---
PROCEDURE: Abdomen Limited INDICATIONS: RUQ eval has stents and fever TECHNIQUE: Real-time focused scanning was performed of the abdomen, with image documentation. COMPARISON: CT abdomen and pelvis with contrast, 12/15/2020. FINDINGS: Liver measures 17 cm and demonstrates coarse echotexture. Visualization of liver is limite d because of an insulin pump in the way. No gallstones. There is gallbladder wall thickening measuring 5 mm. Trace pericholecystic fluid colle ction. No sonographic Parisi's sign. Common bile measures 5 mm in diameter. 2 stents are seen in common bile duct. Visualized pancreas is normal. Visualized right kidney is unremarkable. There is free fluid in the right upper quadrant. IMPRESSION: 1 Two biliary stents are seen within the common bile duct. 2. There is gallbladder wall thickening, which could be secondary to acalculus cholecystitis. If clin ically indicated, HIDA scan may be helpful. 3. Free fluid in the right upper quadrant. Reviewed by: Any Rasmussen MD on 01/08/2021 7:34 PM PDT Approved by: Any Rasmussen MD on 01/08/2021 7:34 PM PDT Station ID: [id number]
--- NOTE | 2021-01-08 20:41 | ED Physician Documentation ---
ED Addendum - Addendum Addendum: 01/08/21 20:39 At approximately 8PM, the ED RN asked the STEVEDORING SUPERINTENDENT to contact the admitting hospitalist to ask about admission orders. Hospitalist (Dr. West) then asked to speak with Dr. Price, but I took this call, as Dr. Price had finished his shift and was home at this time. Dr. West says this patient should be transferred to higher level of care; she feels that the case is too complex for [facility]. Dr. West says that her understanding was that Dr. Price was to call the hospitalist back to discuss disposition after US was resulted. 01/08/21 21:16 8:50 PM: call placed to [facility] transfer [place] for consideration of transfer, awaiting reply 01/08/21 21:59 Rains from transfer center, discussed case with transfer center coordinator and she will page appropriate practitioner to call me back 01/08/21 22:36 Still waiting to hear back from [facility] transfer center 01/08/21 23:13 D/W Dr. Shaw, GI monitoring engineer at [facility]. He recommends I discuss the case with the ERCP specialist monitoring engineer. Transfer center will page that specialist now. 01/08/21 23:55 Continuing to wait to hear from [facility]. 01/09/21 00:[address] Dayo Patton, solid tumor specialist at [facility]. He accepts patient for transfer but transfer center coordinator says bed availability might be an issue and they will call back when a bed has been assigned 01/09/21 01:11 Rains back from [facility] transfer center with bed assignment, ready for transfer
[2021-01-08 23:02] LABS: B. PARAPERTUSSIS- RESP PCR PAN NOT DETECTED; B. PERTUSSIS- RESP PCR PANEL NOT DETECTED; C. PNEUMONIAE- RESP PCR PANEL NOT DETECTED; CORONAVIRUS 229E-RESP PCR NOT DETECTED; CORONAVIRUS HKU1-RESP PCR NOT DETECTED; CORONAVIRUS NL63-RESP PCR NOT DETECTED; CORONAVIRUS OC43-RESP PCR NOT DETECTED; HUMAN METAPNEUMOVIRUS NOT DETECTED; INFLUENZA A- RESP PCR PANEL NOT DETECTED; INFLUENZA B - RESP PCR PANEL NOT DETECTED; M. PNEUMONIAE- RESP PCR PANEL NOT DETECTED; PARAINFLUENZA VIRUS 1 NOT DETECTED; PARAINFLUENZA VIRUS 2 NOT DETECTED; PARAINFLUENZA VIRUS 3 NOT DETECTED; PARAINFLUENZA VIRUS 4 NOT DETECTED; RHINOVIRUS/ENTEROVIRUS NOT DETECTED; RSV- RESP PCR PANEL NOT DETECTED; SARS-CoV-2 -RESP PCR PANEL NOT DETECTED
[2021-01-09] MEDS ORDERED: metroNIDAZOLE 500 MG/100 ML 500 MG/100 ML BAG IV ONE (02:00)
[2021-01-09 02:28] VITALS: BP 132/61
== END 2021-01-09 02:10 | disposition short-term general hospital (02) ==
LOC: SUPCPDRO 15:35 → ED 15:35
DX: A41.9 Sepsis, unspecified organism (principal); Z85.89 Personal history of malignant neoplasm of other organs and systems; Z96.89 Presence of other specified functional implants; Z20.822 Contact with and (suspected) exposure to COVID-19; I10 Essential (primary) hypertension; E10.9 Type 1 diabetes mellitus without complications; Z79.82 Long term (current) use of aspirin
CPT/HCPCS: 36415; 71045; 76705; 80053; 81001; 83605; 83690; 85025; 87040; 87077; 87150; 87181; 87631; 96365; 96366; 96368; 96375; 99284; 99285; A9270; 0202U; 81003; 87086

== ENCOUNTER 2021-01-09 02:17 | Outpatient (CLI) | payer MEDICARE, OTHER | END 2021-01-09 02:18 | disposition short-term general hospital (02) | LOC: EMS 02:17 | PROVIDERS: ATTEND Emergency Medicine | DX: A41.9 Sepsis, unspecified organism (principal) | CPT/HCPCS: A0425; A0426 ==

== ENCOUNTER 2021-05-22 11:05 | Emergency (ER) | payer MEDICARE, OTHER ==
[2021-05-22 11:32] LABS: BASOPHILS % (AUTO) 0.4 %; EOSINOPHILS # (AUTO) 0.1 10^3/uL (0.0-0.7); EOSINOPHILS % (AUTO) 1.3 %; HCT - HEMATOCRIT 29.8 % (37.0-47.0); HGB - HEMOGLOBIN 9.8 g/dL (12.0-16.0); LYMPHOCYTES # (AUTO) 0.5 10^3/uL (1.5-3.5); LYMPHOCYTES % (AUTO) 6.1 %; MEAN CORPUSCULAR HEMOGLOBIN 30.7 pg (27.0-31.0); MEAN CORPUSCULAR HGB CONC 32.9 g/dL (32.0-36.0); MEAN CORPUSCULAR VOLUME 93.4 fL (81.0-99.0); MEAN PLATELET VOLUME 9.8 fL (7.9-10.8); MONOCYTES # (AUTO) 0.1 10^3/uL (0.0-1.0); MONOCYTES % (AUTO) 0.8 %; NEUTROPHILS # (AUTO) 6.8 10^3/uL (1.5-6.6); NEUTROPHILS % (AUTO) 91.1 %; PLT - PLATELET COUNT 209 10^3/uL (130-450); RED BLOOD COUNT 3.19 10^6/uL (4.20-5.40); RED CELL DISTRIBUTION WIDTH 13.7 % (12.0-15.0); WHITE BLOOD COUNT 7.4 x10^3/uL (4.8-10.8)
[2021-05-22 11:45] LABS: ALBUMIN 3.5 g/dL (3.2-5.5); ALBUMIN/GLOBULIN RATIO 0.9 (1.0-2.2); BILIRUBIN,TOTAL 0.9 mg/dL (0.2-1.0); CALCIUM 9.2 mg/dL (8.5-10.3); CREATININE 0.5 mg/dL (0.4-1.0); POTASSIUM 4.6 mmol/L (3.5-5.0); TOTAL PROTEIN 7.2 g/dL (6.7-8.2)
[2021-05-22] MEDS ORDERED: SODIUM CHLORIDE 0.9% 1,000 ML IV STA (12:09)
--- NOTE | 2021-05-22 12:26 | ED Physician Documentation ---
History of Present Illness - Stated complaint Stated Complaint: DIARRHEA - Chief complaint Chief Complaint: Abd Pain - Additonal information Additional information: This is a 66-year-old female with past medical history of cholangiocarcinoma currently on chemotherapy and recent diagnosis of C. difficile approximately 1 month ago presents with 3 days of frequent, watery diarrhea, nonbloody as well as some mild generalized abdominal cramping. She is not had a fever, chills, nausea or vomiting. Denies severe abdominal pain. She completed a course of vancomycin p.o. which improved her symptoms however they returned after about a month. She thought perhaps it was something she ate as her does have some mild GI symptoms himself. She does not typically get diarrhea with her chemotherapy treatment. PD PAST MEDICAL HISTORY - Past Medical History Cardiovascular: Hypertension Neuro: TIA Endocrine/Autoimmune: Type 1 diabetes GI: Other (cholangiocarcinoma ) - Past Surgical History Past Surgical History: No - Present Medications Home Medications: Ambulatory Orders Medication Instructions Recorded Confirmed Insulin Lispro [Humalog] 01/29/18 Losartan Potassium 1 tab PO DAILY 01/29/18 01/08/21 Pravastatin [Pravachol] 1 tab PO DAILY 01/29/18 01/08/21 buPROPion HCL [Bupropion Xl] 2 tab PO DAILY 01/29/18 01/08/21 Acetaminophen/Cod 300/30 [Tylenol 1 tab PO Q6HR PRN 01/08/21 01/08/21 #3] Aspirin [[place] Aspirin] 81 mg PO DAILY 01/08/21 01/08/21 Ondansetron HCl [Zofran] 4 mg PO Q4HR PRN 01/08/21 01/08/21 Prochlorperazine [Compazine] 10 mg PO Q6HR PRN 01/08/21 01/08/21 Vancomycin [Vancocin] 125 mg PO QID #56 05/22/21 - Allergies Allergies/Adverse Reactions: Allergies Allergy/AdvReac Type Severity Reaction Status Date / Time clindamycin Allergy Rash Verified 05/22/21 11:20 - Social History Does the pt smoke?: No Smoking Status: Never smoker Does the pt drink ETOH?: No Does the pt have substance abuse?: No - Immunizations Immunizations are current?: Yes - POLST Patient has POLST: No Results - Vitals Vitals: Vital Signs - 24 hr 05/22/21 05/22/21 11:14 14:05 Temperature 37.3 C 37.3 C Heart Rate 98 99 Respiratory 16 16 Rate Blood Pressure 140/51 H 149/73 H O2 Saturation 98 97 Oxygen O2 Source Room air - Labs Labs: Laboratory Tests 05/22/21 05/22/21 05/22/21 11:28 11:28 12:48 WBC 7.4 RBC 3.19 L Hgb 9.8 L Hct 29.8 L MCV 93.4 MCH 30.7 MCHC 32.9 RDW 13.7 Plt Count 209 MPV 9.8 Neut # (Auto) 6.8 H Lymph # (Auto) 0.5 L [place] # (Auto) 0.1 Eos # (Auto) 0.1 Baso # (Auto) 0.0 Absolute Nucleated RBC 0.00 Nucleated RBC % 0.0 Sodium 129 L Potassium 4.6 Chloride 91 L Carbon Dioxide 28 Anion Gap 10.0 BUN 8 Creatinine 0.5 Estimated GFR (MDRD) 123 Glucose 250 H Calcium 9.2 Total Bilirubin 0.9 AST 25 ALT 46 Alkaline Phosphatase 276 H Total Protein 7.2 Albumin 3.5 Globulin 3.7 Albumin/Globulin Ratio 0.9 L Lipase 45 Urine Color DARK YELLOW Urine Clarity CLEAR Urine pH 6.0 Ur Specific [place] 1.020 Urine Protein 30 H Urine Glucose (UA) 250 H Urine Ketones 15 H Urine Occult Blood NEGATIVE Urine Nitrite NEGATIVE Urine Bilirubin NEGATIVE Urine Urobilinogen 0.2 (NORMAL) Ur Leukocyte Esterase NEGATIVE Urine RBC 0-5 Urine WBC 4-5 Ur Squamous Epith Cells MOD Squamous H Urine Bacteria Few Ur Microscopic Review INDICATED Urine Culture Comments NOT INDICATED Stl C. diff Tox B Gene 05/22/21 12:48 WBC RBC Hgb Hct MCV MCH MCHC RDW Plt Count MPV Neut # (Auto) Lymph # (Auto) [place] # (Auto) Eos # (Auto) Baso # (Auto) Absolute Nucleated RBC Nucleated RBC % Sodium Potassium Chloride Carbon Dioxide Anion Gap BUN Creatinine Estimated GFR (MDRD) Glucose Calcium Total Bilirubin AST ALT Alkaline Phosphatase Total Protein Albumin Globulin Albumin/Globulin Ratio Lipase Urine Color Urine Clarity Urine pH Ur Specific [place] Urine Protein Urine Glucose (UA) Urine Ketones Urine Occult Blood Urine Nitrite Urine Bilirubin Urine Urobilinogen Ur Leukocyte Esterase Urine RBC Urine WBC Ur Squamous Epith Cells Urine Bacteria Ur Microscopic Review Urine Culture Comments Stl C. diff Tox B Gene POSITIVE A* PD MEDICAL DECISION MAKING - ED course Complexity details: reviewed results, considered differential, d/w patient ED course: This is a 66-year-old female with a past medical history of cholangiocarcinoma currently on chemotherapy and prior C. difficile infection who presents with recurrent diarrhea. We sent a sample for C. difficile and it is again positive. Her labs are stable for her, she is afebrile and hemodynamically stable. She declined any IV fluids or antinausea medication. We will treat her with vancomycin p.o. 125 mg capsules 4 times a day for 14 days. Her primary care provider may consider doing a stepdown approach, she will follow up before the end of treatment I did inquire about the cost of fidaxomicin this was cost prohibitive. There are also adjuvant therapies including monoclonal antibody treatment for recurrent cdiff and it may be beneficial to patient however given her active chemotherapy I will defer to her cancer care team. Supportive measures and return precautions reviewed w/ pt. Departure - Departure Disposition: 01 Home, Self Care Clinical Impression: Diarrhea Qualifiers: Diarrhea type: unspecified type Qualified Code(s): R19.7 - Diarrhea, unspecified Assessment: Pt left prior to final results. I notified her on the phone at approx 1515 of test results and called in a prescription. Instructions: ED Diarrhea Viral Prescriptions: Vancomycin [Vancocin] 125 mg PO QID #56 Comments: You presented with several days of diarrhea. I suspect this is a recurrence of your C. difficile however that test is pending. I will notify you of the results and call in a prescription for antibiotics for this if indicated. If this test is negative then it is likely a viral gastroenteritis and these are typically self resolving in 2 to 3 days. Adhere to a bland diet, things that are easily digestible and avoid high fat, fried, spicy, high sugar foods which could exacerbate diarrhea. Please do not take any antidiarrheals until I notify you of your test results. Return if you develop fever, increasing abdominal pain vomiting or other new concerns. Discharge Date/Time: 05/22/21 14:06
[2021-05-22 13:10] LABS: GLUCOSE, URINE (UA) 250 mg/dL (NEGATIVE); KETONES,URINE (UA) 15 mg/dL (NEGATIVE); LEUKOCYTE ESTERASE, URINE NEGATIVE (NEGATIVE); NITRITE,URINE NEGATIVE (NEGATIVE); OCCULT BLOOD,URINE NEGATIVE (NEGATIVE); PROTEIN,URINE 30 mg/dL (NEGATIVE); UROBILINOGEN,URINE 0.2 (NORMAL) E.U./dL (NORMAL)
[2021-05-22 13:14] LABS: BILIRUBIN,URINE NEGATIVE (NEGATIVE); CLARITY,URINE CLEAR (CLEAR); ICTOTEST,URINE NEGATIVE
[2021-05-22 13:18] LABS: BACTERIA,URINE Few /HPF (None Seen); RBC,URINE 0-5 /HPF (0-5); SQUAMOUS EPITHELIAL CELL,UR MOD Squamous (<= Few)
[2021-05-22 14:05] VITALS: BP 149/73
== END 2021-05-22 14:06 | disposition home or self-care (01) ==
LOC: ED 11:05
DX: A04.71 Enterocolitis due to Clostridium difficile, recurrent (principal); R19.7 Diarrhea, unspecified; C22.1 Intrahepatic bile duct carcinoma; I10 Essential (primary) hypertension; E10.9 Type 1 diabetes mellitus without complications; Z79.4 Long term (current) use of insulin
CPT/HCPCS: 36415; 80053; 81001; 81003; 81599; 83690; 85025; 87045; 87046; 87086; 87493; 99283

== ENCOUNTER 2022-09-03 10:26 | Emergency (ER) | payer MEDICARE, OTHER ==
[2022-09-03 10:34] VITALS: BP 140/59
--- NOTE | 2022-09-03 10:41 | ED Physician Documentation ---
PD HPI SKIN - Stated complaint Stated Complaint: RASH - Chief complaint Chief Complaint: Wound - History obtained from History obtained from: Patient - History of Present Illness Timing - onset: Yesterday (she has had some pain in left side neck and clavicle area for 2-3 days, and then started with mild rash last evening that is worse today in that same area. not much pain. Has itching/tenderness more.) Timing - duration: Days Timing - details: Gradual onset, Still present Location: Neck, Chest (left side of neck and to the left clavicle area to the lateral pectoral area. Mild to inside part of upper arm.) Quality / character: Itchy, Discolored (red patches with small vesicle clusters.), Vesicular Associated symptoms: Myalgias. No: Fever, N/V/D Similar symptoms before: Has not had sx before Review of Systems Constitutional: denies: Fever, Chills Cardiac: denies: Chest pain / pressure, Palpitations Respiratory: denies: Dyspnea, Cough GI: denies: Abdominal Pain, Nausea, Vomiting, Diarrhea PD PAST MEDICAL HISTORY - Past Medical History Cardiovascular: Hypertension Neuro: TIA Endocrine/Autoimmune: Type 1 diabetes GI: Other (cholangiocarcinoma ) - Past Surgical History Past Surgical History: No - Present Medications Home Medications: Ambulatory Orders Medication Instructions Recorded Confirmed Insulin Lispro [Humalog] 01/29/18 Losartan Potassium 1 tab PO DAILY 01/29/18 01/08/21 Pravastatin [Pravachol] 1 tab PO DAILY 01/29/18 01/08/21 buPROPion HCL [Bupropion Xl] 2 tab PO DAILY 01/29/18 01/08/21 Acetaminophen/Cod 300/30 [Tylenol 1 tab PO Q6HR PRN 01/08/21 01/08/21 #3] Aspirin [[place] Aspirin] 81 mg PO DAILY 01/08/21 01/08/21 Prochlorperazine [Compazine] 10 mg PO Q6HR PRN 01/08/21 01/08/21 ondansetron HCL [Zofran] 4 mg PO Q4HR PRN 01/08/21 01/08/21 Vancomycin [Vancocin] 125 mg PO QID #56 05/22/21 valACYclovir [Valtrex] 1,000 mg PO TID 7 Days #42 tablet 09/03/22 - Allergies Allergies/Adverse Reactions: Allergies Allergy/AdvReac Type Severity Reaction Status Date / Time alendronate sodium Allergy Respiratory Verified 09/03/22 10:32 [From Fosamax] clindamycin Allergy Rash Verified 09/03/22 10:31 clopidogrel [From Plavix] Allergy Unknown Verified 09/03/22 10:32 rosuvastatin [From Crestor] Allergy Cramps Verified 09/03/22 10:32 - Social History Does the pt smoke?: No Smoking Status: Never smoker Does the pt drink ETOH?: No Does the pt have substance abuse?: No - Immunizations Immunizations are current?: Yes - POLST Patient has POLST: No PD ED PE NORMAL - Vitals Vital signs reviewed: Yes - General General: Alert and oriented X 3, No acute distress, Well developed/nourished - HEENT HEENT: PERRL, EOMI - Neck Neck: Supple, no meningeal sign, No adenopathy, Other (left side of lower cervical area and toward the clavicle/lateral pectoral/inner upper arm with patchy red based rash with clustered vesicles. Somewhat tender. ) Results - Vitals Vitals: Vital Signs - 24 hr 09/03/22 10:29 Temperature 36.9 C Heart Rate 89 Respiratory 16 Rate Blood Pressure 140/59 H O2 Saturation 99 Oxygen O2 Source Room air PD Medical Decision Making - ED course Complexity details: considered differential (appearance is very c/w shingle of C5 area. ), d/w patient, d/w family (spouse) Departure - Departure Disposition: 01 Home, Self Care Clinical Impression: Herpes zoster involving cervical dermatome Condition: Stable Record reviewed to determine appropriate education?: Yes Instructions: ED Shingles Follow-Up: OLLIE MARTIN MD [Primary Care Provider] - Prescriptions: valACYclovir [Valtrex] 1,000 mg PO TID 7 Days #42 tablet Comments: This looks consistent with shingles and 1/5 cervical nerve root distribution. I would have you take valacyclovir 1000 mg 3 times a day for 7 days. Tylenol or ibuprofen if needed for pains. If this gets more significantly painful, we could add on opioid type pain medicines. We would also think of adding a steroid type anti-inflammatory but that really is to decrease the degree of symptoms. Since your symptoms are mild at this point we are probably defer steroids and opioids due to their potential side effects. I sent a prescription for the valacyclovir to your preferred pharmacy. Discharge Date/Time: 09/03/22 11:17
[2022-09-03] MEDS ORDERED: valACYclovir 500 MG TABLET PO STA (10:58)
[2022-09-03] MEDS ORDERED: ACETAMINOPHEN 325 MG TABLET PO STA (10:58)
== END 2022-09-03 11:17 | disposition home or self-care (01) ==
LOC: ED 10:26
DX: B02.9 Zoster without complications (principal); E10.9 Type 1 diabetes mellitus without complications; I10 Essential (primary) hypertension
CPT/HCPCS: 99282; 99283; A9270

== ENCOUNTER 2023-06-05 09:31 | Emergency (ER) | payer MEDICARE, OTHER ==
[2023-06-05 10:07] VITALS: O2SAT 100
[2023-06-05] MEDS ORDERED: SODIUM CHLORIDE 0.9% 1,000 ML IV STA (10:17)
[2023-06-05 10:58] LABS: BASOPHILS % (AUTO) 0.7 %; EOSINOPHILS # (AUTO) 0.2 10^3/uL (0.0-0.7); HCT - HEMATOCRIT 40.6 % (37.0-47.0); HGB - HEMOGLOBIN 13.3 g/dL (12.0-16.0); LYMPHOCYTES # (AUTO) 0.5 10^3/uL (1.5-3.5); LYMPHOCYTES % (AUTO) 9.5 %; MEAN CORPUSCULAR HEMOGLOBIN 29.1 pg (27.0-31.0); MEAN CORPUSCULAR HGB CONC 32.8 g/dL (32.0-36.0); MEAN CORPUSCULAR VOLUME 88.8 fL (81.0-99.0); MEAN PLATELET VOLUME 11.1 fL (7.9-10.8); MONOCYTES # (AUTO) 0.4 10^3/uL (0.0-1.0); MONOCYTES % (AUTO) 7.1 %; NEUTROPHILS # (AUTO) 4.3 10^3/uL (1.5-6.6); NEUTROPHILS % (AUTO) 78.5 %; PLT - PLATELET COUNT 271 10^3/uL (130-450); RED BLOOD COUNT 4.57 10^6/uL (4.20-5.40); WHITE BLOOD COUNT 5.5 x10^3/uL (4.8-10.8)
[2023-06-05 11:22] LABS: ALBUMIN 4.5 g/dL (3.2-5.5); ALBUMIN/GLOBULIN RATIO 1.3 (1.0-2.2); BILIRUBIN,TOTAL 0.5 mg/dL (0.2-1.0); CREATININE 0.9 mg/dL (0.6-1.3); POTASSIUM 4.1 mmol/L (3.5-4.5); TOTAL PROTEIN 7.9 g/dL (6.4-8.9)
--- NOTE | 2023-06-05 13:11 | CT Report ---
PROCEDURE: ABDOMEN/PELVIS W INDICATIONS: upper abd pain, cholangiocarcinoma, stents CONTRAST: 100ml omni 300 TECHNIQUE: After the administration of oral and intravenous contrast, 5 mm thick sections acquired from the diap hragms to the symphysis. 5 mm thick coronal and sagittal reformats were acquired. For radiation dos e reduction, the following was used: automated exposure control, adjustment of mA and/or kV accordin g to patient size. COMPARISON: 12/15/2020 FINDINGS: Image quality: Excellent. Lung bases and heart: Unremarkable. Liver: A hilar mass extending into the central right lobe of the liver is consistent with this patien t's known cholangiocarcinoma. It appears to be slightly greater in size than on the previous study. O n the previous study, on image 21/3 it measured approximately 2.7 x 1.8 cm. Current measurements are approximately 3.0 x 2.5 cm on current image 14/2. There are bilateral endoscopically placed Silastic stents. The amount of biliary ductal dilatation is significantly improved, with mild intrahepatic kevin iary ductal dilatation currently present.. Gallbladder and biliary tree: Gallbladder has an improved appearance compared to the previous study. The previous wall edema is significantly improved. There is mild wall prominence. No radiopaque stone s are identified. Silastic endoscopically placed stents extend into the central right and left intrah epatic ducts. Spleen: No splenomegaly. Pancreas: No pancreatic ductal dilation. Adrenals: No adrenal nodule. Kidneys and ureters: No hydronephrosis. No renal cystic lesion which requires follow up. No solid mas s. Bowel and peritoneum: No bowel distension. No pathologic free fluid. Large diffuse fecal load. Lymph nodes: No central or retroperitoneal adenopathy. Vessels: No infrarenal aortic aneurysm. PELVIS Reproductive organs: Unremarkable. Bladder: No abnormal wall thickening, accounting for underdistension. Pelvic lymph nodes: No pelvic adenopathy by size criteria. Bones: No aggressive osseous abnormality. Lumbar degenerative change. Other: No significant ventral or inguinal hernia. IMPRESSION: 1. The central liver mass appears somewhat increased in size compared to the previous study. 2. There are now 2 endoscopically placed Silastic stents, which extend into the right and left intrah epatic duct respectively, with significant improvement in intrahepatic biliary ductal dilatation. The re is mild intrahepatic biliary ductal dilatation present. 3. Moderately large diffuse fecal load. Reviewed by: Blake Marcano MD on 06/05/2023 1:09 PM PST Approved by: Blake Marcano MD on 06/05/2023 1:09 PM PST Station ID: [id number]
--- NOTE | 2023-06-05 14:56 | ED Physician Documentation ---
History of Present Illness - Stated complaint Stated Complaint: ABD PX - Chief complaint Chief Complaint: Abd Pain - History obtained from History obtained from: Patient - Additonal information Additional information: The patient comes to the emergency department chief complaint of upper abdominal pain and cramping for the last 4 days. She denies any fevers or chills. No jaundice. She has a history of cholangiocarcinoma and gets stents placed in her bile duct every 6 months and just had this done in April 23. She denies any other complaints at this time. No nausea or vomiting. No diarrhea. PD PAST MEDICAL HISTORY - Past Medical History Cardiovascular: Hypertension Neuro: TIA Endocrine/Autoimmune: Type 1 diabetes GI: Other Other Past Medical History: Cancer - Past Surgical History Past Surgical History: No - Present Medications Home Medications: Ambulatory Orders Medication Instructions Recorded Confirmed Insulin Lispro [Humalog] 30 unit SUBQ BIDWM 01/29/18 06/05/23 Losartan Potassium 1 tab PO DAILY 01/29/18 06/05/23 Pravastatin [Pravachol] 1 tab PO DAILY 01/29/18 06/05/23 buPROPion HCL [Bupropion Xl] 2 tab PO DAILY 01/29/18 06/05/23 Aspirin [[place] Aspirin] 81 mg PO DAILY 01/08/21 06/05/23 valACYclovir [Valtrex] 1,000 mg PO TID 7 Days #42 tablet 09/03/22 06/05/23 - Allergies Allergies/Adverse Reactions: Allergies Allergy/AdvReac Type Severity Reaction Status Date / Time alendronate sodium Allergy Respiratory Verified 09/03/22 10:32 [From Fosamax] clindamycin Allergy Rash Verified 09/03/22 10:31 clopidogrel [From Plavix] Allergy Unknown Verified 09/03/22 10:32 rosuvastatin [From Crestor] Allergy Cramps Verified 09/03/22 10:32 - Social History Does the pt smoke?: No Smoking Status: Never smoker Does the pt drink ETOH?: No Does the pt have substance abuse?: No - Immunizations Immunizations are current?: Yes - POLST Patient has POLST: No PD ED PE NORMAL - Vitals Vital signs reviewed: Yes - General General: Alert and oriented X 3, No acute distress, Well developed/nourished - HEENT HEENT: Atraumatic, PERRL, EOMI, Moist mucous membranes - Neck Neck: Supple, no meningeal sign - Cardiac Cardiac: RRR, No murmur - Respiratory Respiratory: No respiratory distress, Clear bilaterally - Abdomen Abdomen: Soft, Non distended, Other (epigastric tenderness, no rebound or guarding.) - Derm Derm: Normal color, Warm and dry, No rash - Extremities Extremities: No deformity, No edema - Neuro Neuro: Alert and oriented X 3 - Psych Psych: Normal mood, Normal affect Results - Vitals Vitals: Vital Signs - 24 hr 06/05/23 06/05/23 09:38 15:16 Temperature 36.1 C L 36.2 C L Heart Rate 90 75 Respiratory 16 16 Rate Blood Pressure 129/48 L 132/86 H O2 Saturation 100 100 Oxygen O2 Source Room air - Labs Labs: Laboratory Tests 06/05/23 06/05/23 06/05/23 10:51 10:51 11:43 WBC 5.5 RBC 4.57 Hgb 13.3 Hct 40.6 MCV 88.8 MCH 29.1 MCHC 32.8 RDW 12.0 Plt Count 271 MPV 11.1 H Neut # (Auto) 4.3 Lymph # (Auto) 0.5 L [place] # (Auto) 0.4 Eos # (Auto) 0.2 Baso # (Auto) 0.0 Absolute Nucleated RBC 0.00 Nucleated RBC % 0.0 Sodium 135 Potassium 4.1 Chloride 99 L Carbon Dioxide 29 Anion Gap 7.0 BUN 15 Creatinine 0.9 Estimated GFR (MDRD) 62 L Glucose 252 H Calcium 10.0 Total Bilirubin 0.5 AST 73 H ALT 85 H Alkaline Phosphatase 465 H Total Protein 7.9 Albumin 4.5 Globulin 3.4 Albumin/Globulin Ratio 1.3 Lipase 16 Urine Color YELLOW Urine Clarity CLEAR Urine pH 6.0 Ur Specific [place] <=1.005 Urine Protein NEGATIVE Urine Glucose (UA) 250 H Urine Ketones NEGATIVE Urine Occult Blood TRACE-INTA Urine Nitrite NEGATIVE Urine Bilirubin NEGATIVE Urine Urobilinogen 0.2 (NORMAL) Ur Leukocyte Esterase NEGATIVE Ur Microscopic Review NOT INDICATED Urine Culture Comments NOT INDICATED - Rads (name of study) CT abd/pelvis Relevant Findings:: Final report received, See rad report (stents in place, GB decompressed, some enlargement of liver mass since our most recent comparison study.) PD Medical Decision Making - ED course Complexity details: reviewed old records, reviewed results, re-evaluated p atient, considered differential, d/w patient, d/w family, d/w admissions consultant (Dr. Brayan Soto gastroenterology ) ED course: The pt overall looked well, but had a complicated abdominal history. Laboratory studies showed mild elevations of ALT/AST and moderate elevation of alkaline phosphatase, similar to yesterday's values, which pt had brought along. She was sent for a CT scan of the abdomen and pelvis, which did not show any acute findings. I did reach out to the pt's consumer insight analyst, Dr. Brayan Soto of the , and he felt that the pt could continue the plan for antacids that were prescribed yesterday. He stated that the pt could follow up with him if sx do not improve in the next couple of weeks. I relayed this to the pt and her , who expressed understanding. We have discussed the usual indications for return. Departure - Departure Disposition: 01 Home, Self Care Clinical Impression: Abdominal pain Qualifiers: Abdominal location: upper abdomen, unspecified Qualified Code(s): R10.10 - Upper abdominal pain, unspecified Condition: Stable Instructions: ED Abdominal Pain Female Non-Specific Abdominal Pain Comments: Your labs overall look fairly good. Your white blood cell count is normal and your bilirubin is normal. Your CT scan shows your stents to be in place and your gallbladder to be decompressed. Your case was able to be discussed directly with your consumer insight analyst Dr. Soto. He says at this point in time that he would agree with the meds that you were prescribed yesterday and thinks it is a good idea for you to take them. He said that if you continue to have symptoms over the next couple weeks and they are not really getting any better, to call his office and they will do a follow-up visit with you to see if anything further needs to be done. Forms: PCP List Discharge Date/Time: 06/05/23 15:17
[2023-06-05 15:19] LABS: BILIRUBIN,URINE NEGATIVE (NEGATIVE); GLUCOSE, URINE (UA) 250 mg/dL (NEGATIVE); KETONES,URINE (UA) NEGATIVE (NEGATIVE); LEUKOCYTE ESTERASE, URINE NEGATIVE (NEGATIVE); NITRITE,URINE NEGATIVE (NEGATIVE); OCCULT BLOOD,URINE TRACE-INTA (NEGATIVE); PROTEIN,URINE NEGATIVE (NEGATIVE); UROBILINOGEN,URINE 0.2 (NORMAL) E.U./dL (NORMAL)
[2023-06-05 15:25] VITALS: BP 132/86
[2023-06-05 15:30] LABS: CLARITY,URINE CLEAR (CLEAR)
[2023-06-05] MEDS ORDERED: iohexoL-300 100 ML VIAL IVP ONE (18:31)
== END 2023-06-05 15:17 | disposition home or self-care (01) ==
LOC: ED 09:31
DX: R10.10 Upper abdominal pain, unspecified (principal); I10 Essential (primary) hypertension; E10.9 Type 1 diabetes mellitus without complications; Z79.899 Other long term (current) drug therapy; Z79.82 Long term (current) use of aspirin
CPT/HCPCS: 36415; 74177; 80053; 81003; 83690; 85025; 99283; 99284; Q9967; 81001; 87086

== ENCOUNTER 2023-10-01 08:00 | Outpatient (CLI) | payer MEDICARE, OTHER ==
--- NOTE | 2023-10-01 11:48 | XRAY Report ---
PROCEDURE: Wrist 3+V RT INDICATIONS: SPRAIN OF RIGHT WRIST TECHNIQUE: 3 views of the wrist were acquired. COMPARISON: None. FINDINGS: Bones: No fractures or dislocations. No suspicious bony lesions. Moderate first CMC arthritic sharon nges. Soft tissues: No suspicious soft tissue calcifications or masses. IMPRESSION: No visualized acute fracture or dislocation. However, occult injury cannot be excluded. Recommend jay rt interval imaging follow-up in 7-10 days as clinically indicated for additional evaluation. Reviewed by: Ruchi Handley MD on 10/01/2023 11:47 AM PST Approved by: Ruchi Handley MD on 10/01/2023 11:47 AM PST Station ID: [id number]
== END 2023-10-01 23:59 | disposition home or self-care (01) ==
LOC: DI.S 08:00
PROVIDERS: ATTEND Physician Assistant Medical
DX: S63.8X1A Sprain of other part of right wrist and hand, initial encounter (principal)